=== PATIENT | male | born 1965 | race Caucasian/White ===

== ENCOUNTER 2022-08-01 10:52 | Day surgery (SDC) | payer OTHER, BC ==
[2022-07-29 15:09] VITALS: BMI 45.0
[2022-08-01] MEDS ORDERED: SUCCINYLCHOLINE CHLORIDE 200 MG/10 ML SYRINGE ONE (14:27)
[2022-08-01] MEDS ORDERED: MIDAZOLAM HCL 2 MG/2 ML SINGLE DOSE VIAL ONE (14:27)
[2022-08-01] MEDS ORDERED: KETOROLAC TROMETHAMINE 30 MG/1 ML VIAL ONE (14:51)
[2022-08-01] MEDS ORDERED: ONDANSETRON 4 MG/2 ML VIAL ONE (14:51)
[2022-08-01] MEDS ORDERED: ceFAZolin SODIUM 1 GM VIAL ONE (14:51)
[2022-08-01] MEDS ORDERED: DEXAMETHASONE SOD PHOSPHATE 4 MG/1 ML VIAL ONE (14:51)
[2022-08-01] MEDS ORDERED: BUPIVACAINE HCL/PF 2.5 MG/ML - 30 ML VIAL IJ ONE (15:10)
[2022-08-01] MEDS ORDERED: ONDANSETRON 4 MG/2 ML VIAL IVPUSH PRN (15:22)
[2022-08-01] MEDS ORDERED: PROMETHAZINE HCL 25 MG/1 ML VIAL IVPUSH PRN (15:22)
[2022-08-01] MEDS ORDERED: ACETAMINOPHEN 325 MG TABLET (FP) PO PRN (15:22)
[2022-08-01] MEDS ORDERED: oxyCODONE HCL 5 MG TABLET PO PRN ×2 (15:22)
[2022-08-01 16:34] VITALS: RESP 16
[2022-08-01] MEDS ORDERED: oxyCODONE HCL 5 MG TABLET ONE (17:01)
[2022-08-01 17:16] VITALS: PULSE 68; TEMP 97.7
[2022-08-01 17:40] VITALS: BP 137/72
== END 2022-08-01 17:45 | disposition home or self-care (01) ==
LOC: FASU 10:52
PROVIDERS: ATTEND Orthopaedic Surgery
PROC: 0SBC4ZZ Excision of Right Knee Joint, Percutaneous Endoscopic Approach (ICD-10-PCS; 2022-08-01)
PROC: 0SBC4ZZ Excision of Right Knee Joint, Percutaneous Endoscopic Approach (ICD-10-PCS; principal; 2022-08-01 14:58)
DX: S83.241A Other tear of medial meniscus, current injury, right knee, initial encounter (principal); S83.281A Other tear of lateral meniscus, current injury, right knee, initial encounter; S83.8X1A Sprain of other specified parts of right knee, initial encounter; M65.861 Other synovitis and tenosynovitis, right lower leg; X58.XXXA Exposure to other specified factors, initial encounter; Y93.9 Activity, unspecified; Y92.9 Unspecified place or not applicable
CPT/HCPCS: 82962; 94760